=== PATIENT | male | born 1945 | race Caucasian/White ===

== ENCOUNTER 2017-05-14 19:37 | Emergency (ER) | payer MEDICARE ==
[~2017-05-14] VITALS: Ht 182.9 cm; Wt 84.8 kg
[2017-05-14 21:49] VITALS: Ht 182.9 cm; Wt 84.8 kg
[2017-05-15 03:24] VITALS: BP 126/63
== END 2017-05-15 03:25 | disposition left against medical advice (07) ==
LOC: ED 19:37
DX: Z53.21 Procedure and treatment not carried out due to patient leaving prior to being seen by health care provider (principal)